=== PATIENT | male | born 1985 | race Caucasian/White ===

== ENCOUNTER 2019-12-19 18:35 | Emergency (ER) | payer MEDICAID ==
[~2019-12-19] VITALS: Ht 180.3 cm; Wt 79.4 kg
[2019-12-19 18:39] VITALS: BP 108/69; Ht 180.3 cm; Wt 79.4 kg
[2019-12-19 19:56] LABS: BASOPHIL % 0.3 % (0-2); PLATELET COUNT 293 x10^3mcL (130-400)
[2019-12-19 20:05] LABS: CALCIUM 8.6 mg/dL (8.5-10.1); CARBON DIOXIDE 28.7 mmol/L (21-32); CHLORIDE SERUM 108 mmol/L (98-107); GFR1 > 60 mL/min; GLUCOSE SERUM 119 mg/dL (74-106); POTASSIUM SERUM 3.5 mmol/L (3.5-5.1); SODIUM SERUM 145 mmol/L (136-145)
[2019-12-19 20:10] LABS: ALKALINE PHOSPHATASE 112 U/L (46-116); ALT/SGPT 52 U/L (16-63); AST/SGOT 29 U/L (15-37); TOTAL PROTEIN, SERUM 6.2 g/dL (6.4-8.2)
[2019-12-19 20:26] LABS: BILIRUBIN TOTAL 0.1 mg/dL (0.20-1.00)
== END 2019-12-19 20:09 | disposition home or self-care (01) ==
LOC: ED 18:35
PROVIDERS: Emergency Medicine
DX: R53.1 Weakness (principal); R06.00 Dyspnea, unspecified; J45.909 Unspecified asthma, uncomplicated; Z20.828 Contact with and (suspected) exposure to other viral communicable diseases
CPT/HCPCS: 36415; 87804